=== PATIENT | female | born 1990 | race African-American/Black ===

== ENCOUNTER 2020-05-03 21:07 | Emergency (ER) | payer BC ==
[~2020-05-03] VITALS: Ht 170.2 cm; Wt 144.2 kg
[2020-05-03 21:14] VITALS: Ht 170.2 cm; Wt 144.2 kg
[2020-05-03] MEDS ORDERED: CELEXA20 MG PO (21:15)
[2020-05-03 21:40] LABS: HCG URINE NEGATIVE (NEGATIVE)
[2020-05-03 22:28] LABS: HCG SERUM NEGATIVE (NEGATIVE)
[2020-05-03 23:52] VITALS: BP 151/90
== END 2020-05-03 23:54 | disposition home or self-care (01) ==
LOC: D.ER 21:07
PROVIDERS: Family Medicine
DX: F45.8 Other somatoform disorders (principal)